=== PATIENT | female | born 1940 | race Caucasian/White ===

== ENCOUNTER 2018-09-01 19:02 | Inpatient (IN) | payer OTHER ==
--- NOTE | 2018-09-01 20:00 | ED Physician Chart ---
ED Chief Complaint/HPI - Patient Information Date Seen:: 09/01/18 Time Seen:: 19:46 Chief Complaint:: cofusion [place] Illness[place] 77 [place] for increased confusion although pt denies any pain or confusion Allergies:: Allergies Allergy/AdvReac Type Severity Reaction Status Date / Time No Known Allergies Allergy Verified 09/01/18 19:26 Vitals:: Vital Signs - 8 hr 09/01/18 19:15 Temp 98.9 F HR 91 RR 18 BP 174/89 O2 Sat % 98 ED Past Medical History - Past Medical History Past Medical History: No significant medical hx Family Medical History - Family Member Father History Unknown: Yes ED Physical Exam - Physical Examination General/Constitutional: Awake, Well-developed, well-nourished, Alert, No distress, GCS 15, Non-toxic appearing, Ambulatory Head: Atraumatic Eyes: Lids, conjuctiva normal, PERRL, EOMI Skin: Nl inspection, No rash, No skin lesions, No ecchymosis, Well hydrated, No lymphadenopathy ENMT: External ears, nose nl, Nasal exam nl, Lips, teeth, gums nl Neck: Nontender, Full ROM w/o pain, No JVD, No nuchal rigidity, No bruit, No mass, No stridor Respiratory: Nl effort/Exclusion, Clear to Auscultation, No Wheeze/Rhonchi/Rales Cardio Vascular: RRR, No murmur, gallop, rubs, NL S1 S2 GI: No tenderness/rebounding/guarding, No organomegaly, No hernia, Normal BS's, Nondistended, No mass/bruits, No McBurney tenderness : No CVA tenderness Extremities: No tenderness or effusion, Full ROM, normal strength in all extremities, No edema, Normal digits & nails Neuro/Psych: Alert/oriented, DTR's symmetric, Normal sensory exam, Normal motor strength, Judgement/insight normal, Mood normal, Normal gait, No focal deficits Misc: Normal back, No paraspinal tenderness ED Assessment - Assessment General Assessment: worsening confusion ED Septic Shock - . Is Septic Shock (SBP<90, OR Lactate>4 mmol\L) present?: No - <6hrs of presentation: Vital Signs: Vital Signs - 8 hr 09/01/18 19:15 Temp 98.9 F HR 91 RR 18 BP 174/89 O2 Sat % 98 ED Reassessment (Disposition) - Reassessment Reassessment:: worsening cofusion
[2018-09-01 20:14] LABS: % BASOPHILS 1.7 % (0.0-2.0); % EOSINOPHILS 5.6 % (0.0-5.0); % LYMPHOCYTES 24.2 % (20.0-50.0); % MONOCYTES 11.2 % (2.0-10.0); % NEUTROPHILS 57.3 % (40.0-80.0); BASOPHILE ABSOLUTE 0.1 Th/cumm (0-0.2); EOSINOPHILE ABSOLUTE 0.3 Th/cmm (0.1-0.4); HEMOGLOBIN 11.5 gm/dL (12-16); LYMPHOCYTE ABSOLUTE 1.2 Th/cmm (1.5-3.0); MEAN CORPUSCULAR HEMOGLOBIN 28.5 pg (27.0-31.0); MEAN CORPUSCULAR HGB CONC 32.7 pg (28.0-36.0); MONOCYTE ABSOLUTE 0.5 Th/cmm (0.3-1.0); NEUTROPHILE ABSOLUTE 2.7 Th/cmm (1.8-8.0); PLATELET COUNT 139 Th/cmm (150-400); RED BLOOD COUNT 4.02 Mil/cmm (3.80-5.20); RED CELL DISTRIBUTION WIDTH 14.6 % (11.5-20.0); WHITE BLOOD COUNT 4.8 Th/cmm (4.8-10.8)
[2018-09-01 20:49] LABS: URINE SOURCE CLEAN C
[2018-09-01 20:56] LABS: URINE BILIRUBIN NEGATIVE (NEGATIVE); URINE BLOOD MODERATE (NEGATIVE); URINE GLUCOSE (UA) NEGATIVE (NEGATIVE); URINE KETONE NEGATIVE (NEGATIVE); URINE LEUKOCYTE ESTERASE SMALL (NEGATIVE); URINE MICROSCOPIC INDICATED? YES; URINE NITRATE NEGATIVE (NEGATIVE); URINE PROTEIN NEGATIVE (NEGATIVE); URINE UROBILINOGEN 0.2 E.U./dL (0.2 - 1.0)
[2018-09-01 21:00] LABS: URINE COLOR STRAW
[2018-09-01 21:01] LABS: URINE CLARITY HAZY (CLEAR)
[2018-09-01 21:18] LABS: URINE EPITHELIAL CELLS FEW /lpf (FEW)
[2018-09-01 21:19] LABS: URINE BACTERIA FEW /hpf (NONE SEEN)
[2018-09-01 22:33] LABS: ANION GAP 11.6 (7.0-16.0); BUN - UREA NITROGEN 15 mg/dL (7-25); CHLORIDE 102 mEq/L (98-107); CREATININE - SERUM 0.8 mg/dL (0.6-1.2); GLUCOSE 92 mg/dL (70-105); POTASSIUM SERUM 3.6 mEq/L (3.5-5.1)
[2018-09-01 22:34] LABS: CALCIUM SERUM 9.4 mg/dL (8.6-10.3); SODIUM SERUM 135 mEq/L (136-145)
[2018-09-01] MEDS ORDERED: cefTRIAXone 1 GM in Sodium Chloride 0.9% 50 ML IV SCH (23:00)
--- NOTE | 2018-09-02 08:24 | Diagnostic Imaging Report ---
CT scan of the brain without intravenous contrast HISTORY: Effusion Total DLP equals 627 CTDI equals 34.3 Axial sections were obtained from the base of the skull to the vertex. There is prominence/enlargement of the ventricular system size. Associated enlargement of cerebral sulci and subarachnoid cisterns. Findings are consistent with changes of generalized cerebral atrophy. No acute parenchymal abnormalities. No acute cerebral hemorrhage. Hypodensity is seen within the supratentorial white matter regions without mass effect. The findings may be associated with chronic small vessel ischemic disease. No extra-axial masses or abnormal fluid collections. Right maxillary sinus mucous retention cyst is noted IMPRESSION: 1. No acute abnormalities. 2. Cerebral atrophy. 3. Supratentorial white matter changes that may reflect chronic small vessel ischemic disease 4. Right maxillary mucous retention cyst.
--- NOTE | 2018-09-02 10:10 | History & Physical ---
ADMIT DATE: PATIENT IDENTIFICATION: A 77-year-old female. CHIEF COMPLAINT: "Who are you." HISTORY SOURCE: Talking to the Emergency Room MD as well as patient's son, Rosales Benavides. HISTORY OF PRESENT ILLNESS: A 77-year-old [place] female who resides at [facility], was brought into Emergency Room by her son after the patient's son noted that the patient was getting agitated and going out of her room and preparing herself to work. According to patient's son, this is, compared to his knowledge, was a new finding. The patient was brought in to the Emergency Room here at [facility] where the patient was noted to have some moderate amount of blood, small leukocyte esterase and normal RBC and WBC. Her white blood cell count was also reported normal with monocytes of 11.2% with normal electrolytes. The patient was advised to be admitted for further evaluation. PAST MEDICAL HISTORY: DJD, otherwise negative for diabetes, hypertension, kidney or liver disease. MEDICATIONS AT HOME: Just taking a multivitamin. ALLERGIES: The patient is not allergic to medication. SOCIAL HISTORY: She lives in a intermediate center. The patient denies any smoking cigarette, alcohol, or drug use. FAMILY HISTORY: Unreliable, but according to the patient's son remarkable for diabetes and hypertension. REVIEW OF SYSTEMS: Validity of review of system is questionable. PHYSICAL EXAMINATION: GENERAL: The patient is alert, awake, sitting in the chair. The patient thinks she is in [facility]. The patient is without any acute distress. VITAL SIGNS: Temperature 98.9, pulse is 90, respiratory rate 18, blood pressure is 142/68. HEENT: Normocephalic, atraumatic. Extraocular muscles are intact. Bilateral cataracts noted. Tongue was pink and coated. Poor dentition noted. No facial asymmetry. NECK: Supple. No JVD, no hepatojugular reflux. No lymphadenopathy, thyromegaly or carotid bruit. HEART: Both heart sounds are regular. No S3, no S4, no murmur. CHEST: Lung equal in expansion, no expiratory wheezing. ABDOMEN: Soft. No guarding, no rigidity. Bowel sounds are present. No palpable mass. EXTREMITIES: No edema, no cyanosis. Peripheral pulses are +1. No calf tenderness. NEUROLOGIC: Unable to assess, but brief neurological examination, Mini mental status examination trying to perform, she scored only 6/30. Otherwise, 2-12 cranial nerves are intact without any facial asymmetry. Moving upper and lower extremity without any difficulty. Unable to assess gait due to patient's high risk for fall. AVAILABLE DIAGNOSTIC DATA: CT scan of the head was done, no acute abnormality with cerebral atrophy, supratentorial white matter changes reflect chronic small vessel ischemic disease with right maxillary mucosal retention cyst. CLINICAL IMPRESSIONS: 1. A 77-year-old female with no significant medical history, brought into the Emergency Room for evaluation of increasing agitation and trying getting out of facility and ready to work. According to the patient's son, this behavior is new, though the patient's Mini mental status examination and my clinical impression is more consistent with underlying dementia, which needs to rule out for Alzheimer's sources, multiinfarct versus Lewy body. 2. Degenerative joint disease. 3. High risk for fall. PLAN: The patient is admitted at this time to acute care facility. We will have a Neurology evaluation and we will complete the workup for dementia by getting an MRI of brain. A 2D echocardiogram along with B12, folate, TSH, LARISA, ESR, and RPR as well. The patient will be placed on multivitamin, folic acid, and thiamine. The patient was placed on IV antibiotic, which will be discontinued as well. We will follow cancer program consultant's recommendations as well. I had talked to patient's son over the phone about my clinical impression and possible placement as well. [facility]# [id number]
--- NOTE | 2018-09-03 07:18 | Consultation ---
DATE OF CONSULTATION: 09/03/2018 AGE: 77. SEX: Female. PHYSICIAN: Dr. Pena. CHIEF COMPLAINT: Anxiety and depression. HISTORY OF PRESENT ILLNESS: The patient is a 77-year-old female who lives in [facility]. The patient was admitted to the hospital because the patient has been agitated and has been getting out of her home, pacing up and down. Chart reviewed and the patient interviewed and discussed the patient's condition with the staff. The patient has been confused and has been thinking that "I live with my parents, and I know they are old and they lead their own life." The patient also has been confused and has been easily agitated and has been pacing up and down in the hallway on the unit. She also knows her date, but she was not able to tell me about more information regarding her current living situation. She said that she has been feeling depressed because of what is going on in her life at this time. The patient also has not been able to provide a safe plan for her self-care. PAST PSYCHIATRIC HISTORY: The patient said that she saw a psychiatrist long time ago. PAST MEDICAL HISTORY: The patient has degenerative joint disease, otherwise no other major medical issues. SOCIAL HISTORY: The patient lives in [facility]. The patient said that she is and has no children. She thinks that she lives with her parents and brother. The patient denies alcohol or street drug use or smoking cigarettes. ALLERGIES: No known allergies. MENTAL STATUS EXAM: The patient appears slightly older than her stated age. Anxious. Sad affect. In a depressed mood. Thought processes are mainly goal directed. The patient denies any auditory or visual hallucinations, but seems to be paranoid, confused. The patient denies any thoughts of suicide or homicide. The patient is alert and oriented to the situation, but not to place or person. Impaired immediate and recent memory, but intact remote memory. Poor insight and poor judgment. ASSESSMENT: PRIMARY DIAGNOSIS: Depressive mood disorder, severe, with psychotic features. SECONDARY DIAGNOSIS: Rule out dementia with psychosis. TREATMENT PLAN: We will monitor the patient's behavior and condition closely. We will start the patient on Abilify and on Lexapro and we will adjust the dose. Also, we will reevaluate the patient for further recommendations. Thanks to Dr. Jacobs and we will follow up the patient with you. [facility]# [id number]
[2018-09-03] MEDS ORDERED: Multivitamin Tab PO SCH (09:00)
[2018-09-03 12:06] LABS: FOLIC ACID 13.2 ng/mL (>3.0)
--- NOTE | 2018-09-03 22:32 | Consultation ---
DATE OF CONSULTATION: 09/03/2018 NEUROLOGY CONSULTATION HISTORY OF PRESENT ILLNESS: The patient is 77-year-old. The patient noted to be confused at times agitated, inappropriate. At the moment, the patient seems to be a little bit more reasonable, but she still gets very angry. She says "why the hell I am here." The patient apparently is in an assisted living facility. They noted that the patient was getting more and more agitated, getting out of her room. The patient seems to indicate to them that she was not go to work, so much more confused than she had normally been. PAST MEDICAL HISTORY: The patient otherwise generally healthy, some arthritis. REVIEW OF SYSTEMS: The patient as above with some confusion and agitation. The patient in addition somewhat unsteady, risk for fall. Other than that, a 12-point negative except for above. SOCIAL HISTORY: At this time, does not smoke or drink. MEDICATIONS: Per reconciliation. Here, the patient is on Abilify, Lexapro, and B1. PHYSICAL EXAMINATION: VITAL SIGNS: Temperature 97.5, blood pressure 140/69, and pulse is 80. NECK: Supple, no bruits. HEART: Sounds S1, S2. LUNGS: Clear. NEUROLOGIC: The patient is awake, alert. Initially, she had her head covered with the sheet, but then she was able to talk. She gives me her name. When asked where she lives, she says not here. She is able to name simple objects such as pen and glasses. She is able to follow simple instruction onset. However, she is not able to tell me what day it is, what month, what year. She is able to name objects. The patient's short term memory essentially is 0-1/3. CRANIAL: Pupils reactive to light. Full eye movement, no nystagmus. No facial weakness. MOTOR: She will lift both arms up. Lifts legs up. Reflex about -1 upper extremity. Knees are about -1. Difficult to get ankles. INVESTIGATIONS: CT scan of the head is negative. No acute process. LABORATORY DATA: WBC is 4.8, hemoglobin 11.5, sed rate 70, so the patient possibly has some either inflammatory or infectious process. Sodium 135. UA: WBC 2-5. RPR negative. ASSESSMENT: 1. Encephalopathy. 2. Possible underlying dementia with now intact sensorium, but the patient is very disoriented and poor memory. The patient has question of possible other etiologies and it does not look like this is Lewy body, but will keep an open mind. 3. The patient having workup with B12, TSH, LARISA. Monitor the sed rate, it is still high, may need workup for inflammatory process. At the moment, the patient started on psychiatric medications, seems to modify behavior, somewhat. JOB# [id number]
--- NOTE | 2018-09-04 14:39 | Discharge Summary ---
DATE OF DISCHARGE: 09/03/2018 PRINCIPAL DIAGNOSES: 1. Acute encephalopathy, improved. 2. 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 3. Psychosis. 4. Depression. 5. Degenerative joint disease. 6. Debility. BRIEF STATEMENT FOR THE REASON FOR ADMISSION: A 77-year-old female, admitted to acute care facility from [facility] after the patient was noted to have a change in behavior with some psychotic features. The patient was advised to be admitted. Please refer to my medical H and P for further information. HOSPITAL COURSE: The patient was admitted to acute care facility. The patient was seen by neurologist and psychiatrist. Based on their recommendations it was decided that the patient should have a Geropsych admission for underlying psych evaluation. The patient was accepted and transferred to Geropsych Unit under the care of Dr. Pena. I will be continuing to follow this patient during her stay at Geropsych Unit. JOB# [id number]
== END 2018-09-03 18:13 | DRG 71 ==
LOC: ER 19:02 → TELE 22:00 → MSI 09-02 09:37
PROVIDERS: ADMIT Internal Medicine; ATTEND Internal Medicine
DX: G93.40 Encephalopathy, unspecified (principal); F32.3 Major depressive disorder, single episode, severe with psychotic features; M19.90 Unspecified osteoarthritis, unspecified site; G30.9 Alzheimer's disease, unspecified; F02.80 Dementia in other diseases classified elsewhere, unspecified severity, without behavioral disturbance, psychotic disturbance, mood disturbance, and anxiety; E11.9 Type 2 diabetes mellitus without complications; I10 Essential (primary) hypertension
CPT/HCPCS: 36415-UA; 70450-TC; 80048-TC; 81001-TC; 82607-90; 82746-90; 84443-TC; 85025-TC; 85652-TC; 86038-90; 86430-90; 86592-TC; 87086-90; J0696

== ENCOUNTER 2018-09-03 18:50 | Inpatient (IN) | payer OTHER ==
[2018-09-03] MEDS ORDERED: Magnesium Hydroxide (MOM) 30 mL UDC PO PRN (19:01)
[2018-09-03] MEDS ORDERED: Maalox 30 mL Cup PO PRN (19:01)
[2018-09-03 19:10] VITALS: BP 122/78
--- NOTE | 2018-09-03 22:37 | Progress Notes ---
DATE: 09/03/2018 IDENTIFICATION: A 77-year-old female. SUBJECTIVE: The patient seen and examined. The patient is lying in the bed. The patient refused MRI. Seen by a psychiatrist and neurologist and noted that the patient is an ideal candidate for inpatient Geropsych considering patient has underlying psychosis. PHYSICAL EXAMINATION: VITAL SIGNS: See nurse's note. HEENT: No facial asymmetry. NECK: Supple, no JVD. HEART: Regular, no murmur. CHEST: Lungs equal in expansion, no expiratory wheezing. ABDOMEN: Soft. EXTREMITIES: No edema. NEUROLOGIC: Nonfocal. CLINICAL IMPRESSION: 1. Psychotic disorder. 2. Dementia. 3. Underlying subclinical depression. PLAN: 1. Recommended at this time to transfer this patient to Geropsych Unit. 2. The patient's ESR is reported . We will do some rheumatological workup at this time and we will follow this patient as well. JOB# [id number]
[2018-09-04 06:43] LABS: CHOLESTEROL 189 mg/dL (<200); HDL -HIGH DENSITY LIPOPROTEIN 66 mg/dL (23-92); TRIGLYCERIDES 76 mg/dL (<150)
[2018-09-04] MEDS: Multivitamin Tab PO SCH (09:05)
--- NOTE | 2018-09-04 14:35 | History & Physical ---
ADMIT DATE: 09/04/2018 PATIENT'S IDENTIFICATION: A 77-year-old female. CHIEF COMPLAINT: "I am fine." HISTORY OF PRESENT ILLNESS: The patient was transferred to Geropsych Unit for psychiatric evaluation and management after the patient was noted to have agitation and psychotic features. PAST MEDICAL HISTORY: Remarkable for DJD. MEDICATIONS AT THE TIME OF TRANSFER: The patient is taking, which includes Abilify, Lexapro, multivitamin, B12, Ambien. ALLERGIES: The patient is not allergic to medication. SOCIAL HISTORY: She resides at [facility] in [facility]. The patient has no history of smoking cigarette, alcohol, or drug use. FAMILY MEDICAL HISTORY: Remarkable for diabetes and hypertension. REVIEW OF SYSTEMS: The validity of review of system is questionable. PHYSICAL EXAMINATION: GENERAL: The patient is alert, awake, lying in the bed without any acute distress. VITAL SIGNS: Temperature 98.2, pulse is 81, respiratory rate is 18, blood pressure 130/80. SKIN: Warm to touch. HEENT: Normocephalic, atraumatic. Extraocular muscles are intact. Tongue was pink and coated. Poor dentition noted. No oral lesion, no exudate. No sinus tenderness. NECK: Supple, no JVD. No hepatojugular reflex. No lymphadenopathy, thyromegaly, or carotid bruit. HEART: Both heart sounds are regular. No S3, no S4, no murmur. CHEST AND LUNGS: Equal in expansion, no expiratory wheezing. ABDOMEN: Soft. No guarding, no rigidity. Liver and spleen are not palpable. No palpable mass. EXTREMITIES: No edema, no cyanosis or clubbing. Peripheral pulses are+2. No calf tenderness noted. NEUROLOGIC: The patient is alert, awake. 2-12 cranial nerves are intact. Power in upper and lower extremities are 5-. Sensation to touch was unable to assess. Unable to assess her gait due to high risk for fall. AVAILABLE DIAGNOSTIC DATA: Performed, acute care has been reviewed. CLINICAL IMPRESSIONS: 1. Elevated ESR. 2. Dementia. 3. Degenerative joint disease. 4. Psychiatric illness. 5. Debility. PLAN: The patient will have a followup ESR in order to evaluate further. I do not see any signs and symptoms of any infection or any autoimmune disorder. We will reevaluate the patient if or ESR continues to remain elevated. Meanwhile, continue to provide medication for underlying psychotic illness. Fall precautions and general nursing care will be continued. We will check CBC and ESR in order to reevaluate the patient's symptoms. JOB# [id number]
--- NOTE | 2018-09-05 02:35 | Consultation ---
DATE OF CONSULTATION: 09/04/2018 The patient was seen and evaluated. The patient's chart reviewed. Covering for Dr. Pena. CHIEF COMPLAINT: "Who are you, get out of here." HISTORY OF PRESENT ILLNESS: A 77-year-old female who was brought in here by the patient's family member, her son who resides at the [facility]. The patient was brought in here for increase agitated and believing that she is preparing herself go back to work. In the ER, the patient showed some moderate amount of blood, small leukocyte esterase, but otherwise within normal limits. Today on [id number] evaluation, the patient continues to refuse the interview, easily angered upon approach, disengaged, and suspicious overall, extremely poor historian. PAST MEDICAL HISTORY: DJD. Negative for diabetes, hypertension or kidney, liver disease. MEDICATIONS AT HOME: Taking multivitamin. ALLERGIES TO MEDICATIONS: NKDA. SOCIAL HISTORY: Lives in long term home. The patient denies any smoking, alcohol, or illicit drug use. FAMILY PSYCHIATRIC HISTORY: None. LEGAL SYSTEM: None. PAST PSYCHIATRIC HISTORY: Potential dementia. CT of the head was done, none. CURRENT MEDICATIONS: The patient is on Abilify 5 mg, Lexapro 10 mg, thiamine, and B12. MENTAL STATUS EXAMINATION: Anxious, irritable, agitated, refusing to be interviewed, suspicious. No auditory hallucinations endorsed by the patient. Poor insight, judgment, and impulse control. Unable to assess thought content because of the patient refusal. PRIMARY DIAGNOSIS: Unspecified psychosis, rule out dementia with behavior disturbance and psychosis. MEDICAL TYPE DIAGNOSIS: DJD. WEAKNESSES: Poor coping skills. STRENGTH: Good family support system. ESTIMATED STAY: Between 5-10 days. PLAN: 1. Admit the patient. 2. Obtain more collateral baseline information. 3. We will continue with the current medication regimen. 4. Continue with individual and group therapy to assess the patient's psychiatric baseline mental status. [facility]# [id number]
[2018-09-05 06:57] LABS: % EOSINOPHILS 5.6 % (0.0-5.0); % LYMPHOCYTES 22.8 % (20.0-50.0); % MONOCYTES 12.3 % (2.0-10.0); % NEUTROPHILS 58.3 % (40.0-80.0); EOSINOPHILE ABSOLUTE 0.2 Th/cmm (0.1-0.4); HEMATOCRIT 32.8 % (41.0-60); HEMOGLOBIN 10.8 gm/dL (12-16); LYMPHOCYTE ABSOLUTE 0.8 Th/cmm (1.5-3.0); MEAN CELL VOLUME 86.9 fl (81-100); MEAN CORPUSCULAR HEMOGLOBIN 28.7 pg (27.0-31.0); MEAN PLATELET VOLUME 10.2 fl; MONOCYTE ABSOLUTE 0.5 Th/cmm (0.3-1.0); NEUTROPHILE ABSOLUTE 2.2 Th/cmm (1.8-8.0); PLATELET COUNT 125 Th/cmm (150-400); RED BLOOD COUNT 3.78 Mil/cmm (3.80-5.20); RED CELL DISTRIBUTION WIDTH 14.3 % (11.5-20.0)
[2018-09-05 07:06] LABS: WHITE BLOOD COUNT 3.7 Th/cmm (4.8-10.8)
[2018-09-05] MEDS: Multivitamin Tab PO SCH (08:44)
[2018-09-05 09:50] LABS: ESR SEDIMENTATION SED RATE 61 mm/hr (0-30)
--- NOTE | 2018-09-06 02:49 | Progress Notes ---
DATE: 09/05/2018 SUBJECTIVE: The patient was seen and evaluated. The patient's chart reviewed. Today on [id number] evaluation, the patient continues to refuse the interview. Upon approach, the patient just walked away stating, "who are you." When attempting to validate and reintroduce myself, the patient continues to ignore and refused interview. MENTAL STATUS EXAMINATION: Confused, disorganized, aloof, and suspicious. ASSESSMENT AND PLAN: The patient is a 77-year-old female who continues to demonstrate poor coping skills, poor impulse, refusing interview. JOB# [id number]
[2018-09-06] MEDS: Multivitamin Tab PO SCH (09:55)
[2018-09-07] MEDS: Multivitamin Tab PO SCH (09:15)
--- NOTE | 2018-09-07 10:51 | Progress Notes ---
DATE: 09/06/2018 SUBJECTIVE: Chart reviewed and the patient interviewed. Also discussed the patient's condition with the staff and reviewed the records and labs. The patient continues to be confused and forgetful. The patient also continues to wander in other people's rooms in a confused state and in the middle of the night, waking up other patients. She also is still suspicious and is still paranoid and needs lots of redirections. Otherwise, it is slightly easier to redirect her. The patient also is still saying that "I'm waiting for my father to pick me up." She thinks that the father is coming to take her out of the hospital. ASSESSMENT: The patient is still psychotic and confused. TREATMENT PLAN: Continue to monitor her behavior and her condition. Also, increase Abilify to 10 mg at bedtime. Also, continue to work on behavior modification and on her psychosis. JOB# [id number]
--- NOTE | 2018-09-07 18:57 | Progress Notes ---
DATE: SUBJECTIVE: Chart reviewed and the patient interviewed. Also discussed the patient's condition with the staff and reviewed the records and labs. The patient is still confused and she is still suspicious and paranoid. The patient also still seems to be disoriented and unable to follow directions and needs close monitoring. Also, the patient is exhibiting poor memory and needs constant observation. Otherwise, the patient is compliant with taking her medications. ASSESSMENT: The patient is still psychotic and still needs close monitoring. TREATMENT PLAN: We will continue to monitor her behavior and condition closely. Also, we will add Aricept in a dose of 5 mg every day and we will continue to follow up closely. JOB# [id number]
[2018-09-08] MEDS: Multivitamin Tab PO SCH (09:29)
--- NOTE | 2018-09-09 03:48 | Progress Notes ---
DATE: 09/08/2018 SUBJECTIVE: Chart reviewed and the patient interviewed. Also, discussed the patient's condition with the staff and reviewed records and labs. The patient seems to be slightly calmer than before and seems to be less irritable and less agitated. The patient also is interacting slightly more with peers and with others. She still seems to be slightly depressed, but her eating slightly improved and personal hygiene slightly improved. ASSESSMENT: The patient is still depressed and also still needs placement. TREATMENT PLAN: We will continue to monitor her behavior closely. Also, continue adjusting psychotropic medications. Also, I discussed with family caseworker and the insurance placement issue and also I contacted a few places that can accept her insurance and waiting for the outcome. At the same time, we will continue monitoring behavior and working on her irritability and her depressed mood. JOB# [id number]
[2018-09-09] MEDS: Multivitamin Tab PO SCH (08:14)
--- NOTE | 2018-09-09 22:50 | Progress Notes ---
DATE: SUBJECTIVE: Chart reviewed and the patient interviewed. Also discussed the patient's condition with the staff and reviewed records and labs. The patient continued to be anxious and she is still in a confused and depressed mood. The patient also is still irritable. The patient also is forgetful and confused and needs lots of redirections. She also seems to be depressed. Otherwise, the patient is compliant with taking her medications and no side effect of medications. ASSESSMENT: The patient is still psychotic and needs close monitoring. TREATMENT PLAN: Continue to monitor her behavior and her condition closely. Also working with caseworker intake in regard to discharge plans and placement issue. Continue to work on her placement and also behavioral modification and continue to follow up closely. JOB# [id number]
[2018-09-10] MEDS: Multivitamin Tab PO SCH (09:23)
--- NOTE | 2018-09-11 00:42 | Progress Notes ---
DATE: SUBJECTIVE: Chart reviewed and the patient interviewed. Also discussed the patient's condition with the staff and reviewed records and labs. The patient is still depressed, but her affect is brighter. The patient is calm and cooperative and no behavioral issues in the hospital. The patient also still needs placement and geriatric social work professor is still trying to find placement for the patient. Otherwise, we will continue current medications and behavioral modification and continue to follow up. [facility]# [id number]
[2018-09-11] MEDS: Multivitamin Tab PO SCH (09:14)
--- NOTE | 2018-09-12 04:40 | Progress Notes ---
DATE: 09/11/[address] Pena. SUBJECTIVE: Case was discussed with staff of the patient, reviewed records. The patient is a 77-year-old female who was transferred to [facility] for evaluation and management after the patient was noted to have agitation and psychosis. She has degenerative joint disease. The patient came from [facility]. The patient was delusional. She believes she was agitated because she could not go back to work, was in general ____ easily. She is a poor historian. She is showing progress. She is a bit brighter. Her behavior is improving. The staff is working on placement for this patient. She is sleeping better, eating better, has been compliant with the medication with no side effects, no sedation, no nausea, and no extrapyramidal symptoms. Abilify 10 mg at bedtime and Lexapro 20 mg daily and we will continue to work with the patient in group therapy, milieu therapy, and adjust medication as needed. JOB# [id number]
[2018-09-12] MEDS: Multivitamin Tab PO SCH (08:27)
--- NOTE | 2018-09-12 13:32 | Progress Notes ---
DATE: 09/12/[address] Jerry. Case was discussed with staff of the patient, reviewed records. The patient continues to be confused, demented. Continues to be unable to make safe plan for self-care. She is sleeping better, eating better. She is compliant with the medication with no side effects, no sedation, no nausea, no extrapyramidal symptoms. Continues to be unable to make safe plan for self-care and will continue the patient in group therapy, milieu therapy, adjust medication as needed. [facility]# [id number]
[2018-09-13] MEDS: Multivitamin Tab PO SCH (09:11)
--- NOTE | 2018-09-13 14:13 | Progress Notes ---
DATE: 09/13/[address] Pena. Case was discussed with staff of the patient, reviewed records. The patient continues to be easily agitated. The patient is confused, demented. She believes she can go back to work. The patient is unable to make safe plan for self-care, demented, confused, unable to participate in meaningful conversation, unpredictable, impulsive and needing redirection and I will be initiating her on Aricept. No side effects of the medication. No sedation. No nausea. No no extrapyramidal symptoms and we will continue to work with the patient in group therapy, milieu therapy, and adjust medication as needed. JOB# [id number]
[2018-09-14] MEDS: Multivitamin Tab PO SCH (09:17)
--- NOTE | 2018-09-14 13:24 | Progress Notes ---
DATE: 09/14/2018 SUBJECTIVE: Case was discussed with staff of the patient, reviewed records. The patient continues to have poor insight, unpredictable, impulsive, needing redirection, demented, confused, unable to make safe plan for self-care. We are working on placement for this patient. No side effects to the medication, no sedation, no nausea and no extrapyramidal symptoms. The patient unable to make safe plan for self-care. We will continue to work with the patient in group therapy, milieu therapy, and adjust her medication as needed. JOB# [id number]
[2018-09-15] MEDS: Multivitamin Tab PO SCH (08:23)
--- NOTE | 2018-09-18 09:57 | Progress Notes ---
DATE: 09/15/2018 DATE: 09/15/2018. SUBJECTIVE: Chart reviewed and the patient interviewed. Also discussed the patient's condition with the staff and reviewed the records and labs. The patient continued to be an anxious and she is still forgetful and needs redirections. She also is still not sure about her discharge plans or placement issue and I worked with insurance company and with special education case manager in regard to placement issue. The patient on the other hand seems to be calmer and easier to redirect her. Also, compliant with taking her medications with no side effects. ASSESSMENT: The patient is calm and less agitated, but still needs placement. TREATMENT PLAN: Continue Lexapro 10 mg every day and Abilify 10 mg at bedtime as well as Aricept and Namenda. Also, continue to work with special education case manager in regard to placement issue and discharge plans and continue to follow up closely. JOB# [id number]
== END 2018-09-15 17:30 | DRG 885 ==
LOC: GERO 18:50
PROVIDERS: ADMIT Psychiatry & Neurology Psychiatry; ATTEND Psychiatry & Neurology Psychiatry
DX: F29 Unspecified psychosis not due to a substance or known physiological condition (principal); F03.91 Unspecified dementia, unspecified severity, with behavioral disturbance; M19.90 Unspecified osteoarthritis, unspecified site; R53.81 Other malaise
CPT/HCPCS: 36415-UA; 80061-TC; 83036-90; 85025-TC; 85652-TC; G0410